=== PATIENT | female | born 1945 | race Two or more races ===

== ENCOUNTER → 2022-08-20 | Emergency (ER) | payer OTHER ==
[~2022-08-20] VITALS: Ht 162.6 cm; Wt 67.1 kg
[~2022-08-20] MED LIST: STIOLTO RESPIMAT4 GM; SYMBICORT 16010.2 GM
== END | disposition left against medical advice (07) ==
LOC: ER 13:07
DX: Z53.21 Procedure and treatment not carried out due to patient leaving prior to being seen by health care provider (principal)